=== PATIENT | male | born 2000 | race Caucasian/White ===

== ENCOUNTER 2024-09-26 01:25 | Day surgery (SDC) | payer SELFPAY ==
[2024-09-23 14:33] VITALS: BMI 21.5
--- NOTE | 2024-09-23 14:49 | PC.NURSE ---
Report to the Outpatient Waiting Room, entrance under the green pavilion located off [facility], at time _1100 on date _09/26/24 . Planned Procedure Time: _1300 .? Time changes happen often and if your time is changed the preop area will call you the afternoon before. - You and your visitor will be asked to self-screen and do not enter if you have any COVID symptoms. Please call surgeon if you need to reschedule. - A mask is optional within the hospital at this time. Patients may have clear liquids (water, carbonated beverages, clear teas, apple juice) until 3 hours prior to surgery with a maximum of 20 ounces. - No food from midnight until time of surgery and no smoking, or chewing tobacco (or any form of nicotine). No chewing gum, candy or mints. - Infants may have breast milk until 4 hours before surgery, formula 6 hours prior to surgery. - Children will be allowed to drink immediately following surgery.? If applicable, please bring a bottle or sippy cup to assist with drinking. Juice, water, soda, and popsicles are readily available.? For infants on formula, please bring formula the day of surgery.? Pacifiers are allowed. Take only the following medications with a SIP of water on the morning of surgery: __N/A DO NOT STOP ANY OF YOUR OTHER PRESCRIPTION MEDICATIONS PRIOR TO SURGERY EXCEPT THE FOLLOWING Hold all vitamins and supplements for 3 days per anesthesiologist. Medications to discontinue per physician ____N/A Date to take last dose___N/A Please no make-up, nail guyanese, hairspray, perfume, deodorant, or body powder the day of surgery.? No jewelry (including any body piercings) or valuables the day of surgery, leave them at home.? Please take a shower or bath the night before, or the morning of, surgery with an antibacterial soap.? Wear comfortable, loose fitting clothing.? Children are encouraged to wear pajamas. - Jewelry must be removed prior to entering the operating room.? Rings and piercings that are not removed may be cut off. - The hospital will not accept responsibility for valuables.? - Please leave all valuables, including medications, at home the day of surgery. If you are going home after surgery, a licensed hog driver must drive you home.? - NO public transportation without another adult if you receive anesthesia. - We recommend that an adult stay with you for 24 hours following discharge. - We also recommend that you do not drive, make important decision, drink alcoholic beverages, or take any drugs that were not prescribed by your health care provider for at least 24 hours after your discharge time. For Pediatric surgeries, we recommend two adults accompany the child home. Follow any additional instructions given to you from your surgeon. Telephone instructions given to __Devin and asked if any additional questions and then verbalized understanding. Patient advised to call surgeon office or pre surgery nurse liaison [phone] if any additional questions.
[2024-09-26] VITALS (9 sets, daily range): BP systolic 133–143; BP diastolic 61–93; PULSE 45–96; RESP 14–20; TEMP 36.4–37.4; O2SAT 95–100
--- OUTSIDE RECORDS SUMMARY | 2024-09-26 01:29 | XMS_ITS | Clinical Summary ---
Author Organization [facility] Address [address] [place] [address] Phone Care Team Providers Care Retail Administrative Assistant Name Role Phone Stew Lemus MD Primary Care Provider [phone] Allergies No known active allergies Medications No known medications Social History Tobacco Use Types Packs/Day Years Used Date Smoking Tobacco: Never Smokeless Tobacco: Never Alcohol Use Standard Drinks/Week Comments No 0 (1 standard drink = 0.6 oz pur e alcohol) Sex and Gender Information Value Date Recorded Sex Assigned at Not on file Legal Sex Male 7:32 PM CDT Gender Identity Not on file Sexual Orientation Not on file Last Filed Vital Signs Vital Sign Reading Time Taken Comments Blood Pressure 110/72 01/02/2018 8:18 PM CDT Pulse 65 01/02/2018 8:18 PM CDT Temperature 36.6 C (97.8 F) 01/02/2018 7:33 PM CDT Respiratory Rate 12 01/02/2018 8:18 PM CDT Oxygen Saturation 100% 01/02/2018 8:18 PM CDT Inhaled Oxygen Concentration - - Weight 75.3 kg (166 lb) 01/02/2018 7:33 PM CDT Height 175.3 cm (5' 9) 01/02/2018 7:33 PM CDT Body Mass Index 24.51 01/02/2018 7:33 PM CDT Plan of Treatment Health Maintenance Due Date Last Done Comments Hepatitis C Virus (HCV) Screening 2000 TdaP Immunization 2000 Human Papillomavirus (HPV) Immunization (1 - Male 3-dose series) 2015 Meningococcal B Immunization (1 of 2 - Standard) 2016 Influenza Immunization (#1) 2023 SARS-COV-2 Immunization (2023-25 season) 2023 Respiratory Syncytial Virus (RSV) Immunization (Adult) (1 - 1-dose 75+ series) 2075 Polio (IPV) Immunization Discontinued 2000, 06/15 Hepatitis B Immunization Completed 001, 2000, 2000 Pneumococcal Immunization Combined Aged Out 2000, 2000, 2000 No longer eligible based on patient's age to complete this topic Measles Mumps Rubella (MMR) Immunization Discontinued 08/01/2005, 05/07/2001 DTaP/Tdap/Td Immunization Discontinued 2011, 08/01/2005, 08/06/2001, Additional history exists Varicella Immunization Discontinued 11/20/2014, 2001 Meningococcal Immunization (ACWY) Completed 11/08/2017, 10/23/2011 Rotavirus Immunization Aged Out No lo nger eligible based on patient's age to complete this topic Care Teams Retail Administrative Assistant Relationship Specialty Start Date End Date Stew Lemus MD [address] [place] [address] PCP - General Internal Medicine 01/02/18
--- NOTE | 2024-09-26 07:09 | PM.IMHP ---
H&P: HPI History of Present Illness Date/Time: 09/26/24 07:09 Chief Complaint: chronic tonsillitis PENDING SALE TO [facility] Past Medical History Medical History (Updated 08/08/24 @ 12:41 by Larry Serrano MD) Cryptic tonsil Tonsil stone Chronic tonsillitis Social History Social History (Updated 08/08/24 @ 12:00 by Melody Oakley) Social History: Caffeine-occasional Smoking packs per day: 1 Smoking cigarettes per day: 20.0 Years smoked: 2 Smoking pack-years: 2.00 Smoking status: Current every day smoker Tobacco type: cigarettes Alcohol intake: never Substance use: current Substance use type: marijuana Last use: 09/23/24 Living arrangements: with family Spiritual care concerns: No Meds Home Medications and Allergies Home Medications ?Medication ?Instructions ?Recorded ?Confirmed ?Type cyanocobalamin (vitamin B-12) 50 50 mcg PO DAILY 09/23/24 09/23/24 History mcg tablet Allergies Allergy/AdvReac Type Severity Reaction Status Date / Time No Known Allergies Allergy Verified 09/23/24 14:31 Assessment and Plan Assessment and plan (1) Chronic tonsillitis: Code(s): J35.01 - Chronic tonsillitis Status: Acute (2) Tonsil stone: Code(s): J35.8 - Other chronic diseases of tonsils and adenoids Status: Acute (3) Cryptic tonsil: Code(s): J35.8 - Other chronic diseases of tonsils and adenoids Status: Acute Plan 24-year-old male with chronic tonsil stones and cryptic tonsils. 1. 21 days of doxycycline was sent to pharmacy. 2. In case of present present symptoms will order tonsillectomy. -Risks for tonsillectomy were discussed including but not limited to bleeding infection, injury to teeth, gums, lips and/or tongue. TMJ problems. Delayed bleeding that may require further surgery. All the questions were answered to the best of my ability and the patient wished to proceed. The procedures will be scheduled in a timely fashion.
--- NOTE | 2024-09-26 07:10 | WPDHPUPDATE1 ---
History and Physical Update Update Date/Time: 09/26/24 07:10 History and Physical has been reviewed, including an updated exam of the patient. There are NO changes in the patient's condition. Risks, benefits, and alternatives have been discussed and questions answered. Patient agrees to proceed with procedure.
[2024-09-26] MEDS: LACTATED RINGERS 1,000 ML 30 ML IV CONT (11:45)
[2024-09-26] MEDS: ACETAMINOPHEN 500 MG TABLET 1000 MG PO (11:58)
--- NOTE | 2024-09-26 13:01 | P.PNAN_ITS ---
Anes - Initial Pre Proc Eval Procedure: Operation Date: 09/26/24 13:00 Proposed Procedures p Tonsillectomy And Adenoidectomy - Larry Serrano MD Date/Time: 09/26/24 13:01 Surgeon: Larry Serrano MD Pre Op Diagnosis: Chr Tonsillitis, Tonsils Stones, Patient Data Age: 24 Gender: M Height: 1.78 m Weight: 66.7 kg Last Vital Signs Temp 37.4 C 09/26/24 11:38 Pulse 64 09/26/24 11:38 Resp 16 09/26/24 11:38 BP 134/75 09/26/24 11:38 Pulse Ox 100 09/26/24 11:38 O2 Del Method Room Air 09/26/24 11:38 Allergies Allergy/AdvReac Type Severity Reaction Status Date / Time No Known Allergies Allergy Verified 09/26/24 11:36 Home Medications ?Medication ?Instructions ?Recorded ?Confirmed ?Type cyanocobalamin (vitamin B-12) 50 50 mcg PO DAILY 09/23/24 09/26/24 History mcg tablet Patient hx anesthesia problems: none Family hx anesthesia problems: none Results Review: All pre-operative results and documents have been reviewed as part of the pre- operative evaluation. [facility] Past Medical History Medical History Cryptic tonsil Tonsil stone Chronic tonsillitis Social History Social History Social History: Caffeine-occasional Smoking packs per day: 1 Smoking cigarettes per day: 20.0 Years smoked: 2 Smoking pack-years: 2.00 Smoking status: Current every day smoker Tobacco type: cigarettes Alcohol intake: never Substance use: current Substance use type: marijuana Last use: 09/23/24 Living arrangements: with family Spiritual care concerns: No Anes - Eval Final PreProcedure Day of Procedure 09/26/24 13:01 Patient weight: normal Heart: regular rate and rhythm Lungs: clear to auscultation Airway: Mallampati scale class II Neurological: alert and oriented Last oral intake: >/= 8 hours ASA classification: II Emergent: no Anesthetic plan: proceed Anesthesia type and monitoring: general ETT and standard monitoring Results Review: All pre-operative results and documents have been reviewed as part of the pre- operative evaluation. Informed Consent: The patient's anesthetic plan and its attendant risks and benefits were discussed with the patient/family/POA. Questions were solicited and answers provided to the satisfaction of the patient/family/POA.
--- NOTE | 2024-09-26 13:10 | SUR.PREOP ---
PT INFORMED OF SURGERY TIME DELAY, DENIES NEEDS AT THIS TIME.
--- NOTE | 2024-09-26 14:16 | SUR.PREOP ---
1355 PT INFORMED OF SURGERY TIME DELAY, DENIES NEEDS AT THIS TIME
--- NOTE | 2024-09-26 14:42 | PM.OP ---
Procedure Note - Brief Procedure Note - Brief Date of procedure: 09/26/24 Chr Tonsillitis, Tonsils Stones, Procedure performed: tonsillectomy Surgeon: Larry Serrano MD Anesthesia: GLMA Estimated blood loss (mL): 5 (ml) Drains: No Packing: No Pathology: Yes Complications: No immediate complications Condition: Stable Disposition: PACU
[2024-09-26] MEDS: ceFAZolin 1 GM/NS 50 ML 1 GM/50 ML BAG IVPB (14:43)
--- NOTE | 2024-09-26 15:01 | S_PTH ---
PATIENT: Tavares Cano LOC: [facility] U#:[id number] AGE/SX: 24/M ROOM: RE09/26/[address]: Larry Serrano MD : 2000 BED: DIS: 09/26/2024 SPEC #: [id number] RECD: 09/29/24 07:49 STATUS: FRANCY REQ #: [id number] AMOS: 09/26/24 15:[address]: Larry Serrano DEPT: [facility] Surgical RECD BY: Goldie Vazquez Tissues: A - Tonsils Procedures: Gross and Microscopic Level 2
--- NOTE | 2024-09-26 15:46 | P.OP_ITS ---
Procedure Note - Detailed Date of Procedure 09/26/24 Pre-op Diagnosis Chronic Tonsillitis, Tonsils Stones,cryptic tonsils Post-op Diagnosis Same Procedure Performed Tonsillectomy Surgeon Larry Serrano MD Anesthesia General Indications Patient? with a history of tonsil hypertrophy and tonsil stones .. Patient? pre sents today for tonsillectomy. The risks, benefits, alternatives of the surgery, as well as the expected postoperative course were discussed with the patient and family.? They were provided ample time to discuss their questions and concerns.? They have provided informed consent. Findings bilateral cryptic tonsills Description of Procedure After the patient was identified in the preoperative holding area, patient was transported to the operating room.? Upon arrival in the OR, the patient and intended procedure were reviewed.? The Patient?? was placed in a supine position on the table.? Anesthesia was induced, and the patient was intubated. A Jenny-Aleksandr mouth gag was placed in the patient's mouth and opened to reveal tonsils which were?3+in size. The palate was normal by visualization and palpation.? The tonsils were grasped with a curved Allis clamp and removed sequ entially using of Bizact cautery.?hemostasis was achieved using silk ties Red rubber catheters were inserted through the bilateral nares to retract the soft palate. ?A mirror was used to visualize the adenoids which were noted to be +1? in size. ? The red rubber catheters were then removed and the mouth gag closed for 30 seconds and reopened to assess for bleeding. No further bleeding was noted. The patient was then allowed to awaken in the OR.? The Patient?? was then extubated and taken to recovery in stable condition. Estimated Blood Loss 2 (ml) Drains No Packing No Pathology Yes Complications No immediate complications Condition Stable Disposition PACU [facility] Billing Surgery - Charge Forward: Surgery Billing
[2024-09-26] MEDS: ONDANSETRON INJ 4 MG/2 ML VIAL IV PUSH (16:21)
== END 2024-09-26 17:15 | disposition home or self-care (01) ==
PROVIDERS: Visit Provider Otolaryngology Otolaryngology/Facial Plastic Surgery
PROC: (CPT 42826; principal; 2024-09-26 13:00)
DX: J35.01 Chronic tonsillitis (principal); J35.8 Other chronic diseases of tonsils and adenoids; G89.18 Other acute postprocedural pain; F17.210 Nicotine dependence, cigarettes, uncomplicated; F12.90 Cannabis use, unspecified, uncomplicated
CPT/HCPCS: 42826; 88302; A9270; J0690; J1100; J1171; J2003; J2250; J2405; J2704; J3010; J7120